=== PATIENT | female | born 1990 | race Caucasian/White ===

== ENCOUNTER → 2020-12-11 09:54 | Outpatient (CLI) | payer OTHER, SELFPAY ==
[2020-12-11 19:55] LABS: SARS-CoV-2 RNA PCR Negative
== END ==
PROVIDERS: PCP Internal Medicine; Visit Provider Nurse Practitioner
DX: Z20.822 Contact with and (suspected) exposure to COVID-19 (principal)
CPT/HCPCS: C9803; U0003; U0005

== ENCOUNTER → 2021-09-06 01:09 | Outpatient (CLI) | payer BC, SELFPAY ==
[2021-09-06 11:45] LABS: Influenza A QL RT-PCR Negative (Negative); Influenza B QL RT-PCR Negative (Negative); SARS-CoV-2 RNA PCR Positive
== END ==
PROVIDERS: PCP Internal Medicine; Visit Provider Nurse Practitioner
DX: U07.1 COVID-19 (principal); R50.9 Fever, unspecified
CPT/HCPCS: 87502; C9803; U0003; U0005

== ENCOUNTER 2022-06-16 09:35 | Outpatient (CLI) | payer BC, SELFPAY ==
[2022-06-16 11:44] LABS: Beta HCG Quantitative < 2.39 mIU/ML
== END 2022-06-16 09:36 | disposition home or self-care (01) ==
LOC: ANHLAB 09:37
PROVIDERS: PCP Internal Medicine; Visit Provider Student in an Organized Health Care Education/Training Program
DX: N91.2 Amenorrhea, unspecified (principal)
CPT/HCPCS: 36415; 84702

== ENCOUNTER 2023-07-26 11:08 | Emergency (ER) | payer BC, SELFPAY ==
[2023-07-26] VITALS (11 sets, daily range): BP systolic 127–147; BP diastolic 80–105; PULSE 71–82; RESP 14–19; TEMP 36.8; O2SAT 99–100
--- NOTE | 2023-07-26 11:11 | ED.HA ---
HPI - Headache General Chief Complaint: Headache Stated Complaint: migraine Time Seen by Provider: 07/26/23 11:11 Source: patient Mode of arrival: ambulatory Limitations: no limitations History of Present Illness HPI Narrative: Yasmin is a 33-year-old female patient presenting to the ER today with complaints of a headache that started yesterday. She reports she took 2 doses of Tylenol yesterday and that only minimally relieved the pain. Currently rates her pain as 7 at 10. States the pain is to the top of her head. Is throbbing when she is moving but at rest it is dull. She does not eyes any photosensitivity or phono sensitivity. She reports she has some associated nausea without vomiting. Never been diagnosed with migraine headache. States she is getting more frequently as she is . She is currently 13 weeks by IVF. G1-P0. Blood pressure is 147/96. Wears glasses/contacts- last eye exam was 1 year ago Related Data Home Medications Medication Instructions Recorded Confirmed clonazepam 0.5 mg tablet 0.5 mg PO DAILY PRN 11/30/19 03/25/23 Allergies Allergy/AdvReac Type Severity Reaction Status Date / Time No Known Allergies Allergy Verified 03/25/23 15:08 Review of Systems Review of Systems: Pertinent positives per HPI. Patient denies any fever, chills, rash, visual changes, dizziness, cough, runny nose, sore throat, shortness of breath, chest pain, palpitations, vomiting, diarrhea, constipation, abdominal pain, or any urinary issues. PMFSH Past Medical History Medical History Seasonal allergies Surgical History Surgical History History of salpingo-oophorectomy Family History Family History Mother Diabetes mellitus Grandparent Diabetes mellitus Social History Social History Smoking status: Never smoker Alcohol intake: current Substance use: never Lack of Transportation: No Lack of Food: Never True Current Housing: I Have Housing Concerned About Future Housing: No Difficulty Paying Gas/Electric Bills: No Difficulty Paying for Meds: No Currently Unemployed: Decline to Answer Education: Master's Degree or Higher Difficulty w/ Childcare or Family Care: No Living arrangements: with family Occupation/Education: occupation Gender identity (if verbalized by the patient): Female Sexual Orientation (if Verbalized by the Patient): Straight or Heterosexual Comments At the time of my signature, I reviewed and agree with the nursing past medical, surgical, social, and family history. There is no relevant family history pertinent to the patient complaint. Exam Narrative: General: Well-developed, well nourished, in no apparent distress Head: Normocephalic, atraumatic Eyes: Pupils equally round and reactive to light bilaterally, EOM intact, sclera and conjunctive clear, no discharge, lids normal, wears glasses Ears: TMs intact and clear, ear canals clear, no drainage, grossly hearing normal. Nose: Nares patent, no discharge, no inflammation, no sinus tenderness. Mouth: Oropharynx without lesions or masses, good dentition, MMM. Tongue midline, even rise and fall of uvula Neck: Supple, trachea midline, no enlargement of anterior or posterior cervical nodes, no thyroid masses or goiter palpable. Cardio: Regular rate and rhythm, s1 and s2 normal, no murmur appreciated. Resp: Clear to auscultation bilaterally anteriorly and posteriorly, no rhonchi, rales, wheezing or rubs Musculoskeletal: No deformity, non-tender to palpation, grossly normal range of motion, muscle strength strong and equal, peripheral pulse strong, no edema, no cyanosis, normal gait and station Neuro: Alert and oriented x4 with normal speech, no focal de
[2023-07-26] MEDS: SODIUM CHLORIDE 0.9% IV 1,000 ML 999 ML IV CONT (11:42)
[2023-07-26] MEDS: diphenhydrAMINE HCl INJ 50 MG/ML VIAL 25 MG IV PUSH (11:43)
[2023-07-26] MEDS: PROMETHAZINE HCL 25 MG/ML AMPUL 12.5 MG IV PUSH (11:43)
[2023-07-26] MEDS: ACETAMINOPHEN 500 MG TABLET 1000 MG PO (11:43)
[2023-07-26 12:20] LABS: Appearance Urine Clear (Clear); Bacteria Urine Rare /hpf; Bilirubin Urine Negative (Negative); Blood Urine Negative (Negative); Color Urine Yellow (Yellow); Glucose Urine UA Negative (Negative); Ketones Urine Negative (Negative); Leukocyte Esterase Ur 3+ LEU/UL (Negative); Need Manual Microscopic Reviewed; Nitrate Urine Negative (Negative); Non Pathogenic Casts 0-2; Protein Urine Negative (Negative); RBC Urine 0-2 /hpf (0-2); Specific Grav Ur 1.009 (1.001-1.035); Squamous Epithelial Cell Urine Few /hpf (Few); Urobilinogen Urine 0.2 mg/dL (<2.0); WBC Urine 0-5 /hpf (0-3); pH Urine 6.5 (5.0-9.0)
[2023-07-26 12:22] LABS: Add Urine Microscopic? YES
--- NOTE | 2023-07-26 13:02 | PC.NURSE ---
FHT's per Doppler 140's
== END 2023-07-26 13:59 | disposition home or self-care (01) ==
PROVIDERS: Emergency Provider Nurse Practitioner Family; PCP Internal Medicine
DX: O99.351 Diseases of the nervous system complicating pregnancy, first trimester (principal); G44.89 Other headache syndrome; O23.11 Infections of bladder in pregnancy, first trimester; N30.00 Acute cystitis without hematuria; Z90.79 Acquired absence of other genital organ(s); Z3A.13 13 weeks gestation of pregnancy
CPT/HCPCS: 81001; 96361; 96374; 96375; 99284; A9270; J1200; J2550; J7030

== ENCOUNTER 2023-12-30 11:38 | Outpatient (CLI) | payer BC, SELFPAY ==
[2023-12-30 11:59] LABS: Basophils Percent Auto 0.4 % (0.2-1.2); Eosinophils Absolute Auto 0.1 K/mm3 (0-0.3); Eosinophils Percent Auto 0.6 % (0-4.4); Hematocrit 32.6 % (37.0-47.0); Immature Granulocyte Absolute 0.15 K/mm3 (0.00-0.031); Immature Granulocyte Percent A 1.4 % (0-0.5); Lymphocytes Absolute Auto 1.85 K/mm3 (0.9-3.2); Lymphocytes Percent Auto 17.1 % (18.3-44.2); Mean Corpuscular HGB Conc 30.7 g/dl (32-36); Mean Corpuscular Hemoglobin 23.6 pg (26-34); Mean Corpuscular Volume 76.9 fl (80-100); Monocytes Absolute Auto 0.6 K/mm3 (0.1-0.6); Monocytes Percent Auto 5.6 % (2.6-8.5); Neutrophils Absolute Auto 8.1 K/mm3 (1.3-6.7); Neutrophils Percent Auto 74.9 % (45.5-73.1); Platelet Count Result 269 k/mm3 (150-375); Red Blood Count 4.24 M/mm3 (4.2-5.4); Red Cell Distribution Width 15.9 % (11.5-14.5); White Blood Count 10.8 K/mm3 (4.5-10.0)
[2023-12-30 12:00] VITALS: BP 133/94; PULSE 82
[2023-12-30 12:14] LABS: Alanine Aminotransferase 15 U/L (6-35); Albumin Level 3.9 g/dL (3.5-5.1); Alkaline Phosphatase 202 U/L (38-126); Anion Gap 5 mmol/L (4-12); Aspartate Amino Transferase 25 U/L (14-36); Bilirubin,Total 0.4 mg/dL (0.2-1.3); Blood Urea Nitrogen 6 mg/dL (7-17); Calcium 9.1 mg/dL (8.4-10.2); Carbon Dioxide 21 mmol/L (22-30); Chloride 101 mmol/L (98-107); Estimated Glomerular Filt Rate > 60; Glucose 97 mg/dL (65-110); Potassium 3.9 mmol/L (3.4-5.0); Sodium 127 mmol/L (137-145)
[2023-12-30 12:15] VITALS: BP 132/85; PULSE 82
[2023-12-30 12:30] VITALS: BP 123/84; PULSE 91
[2023-12-30 12:31] LABS: Color Urine Yellow (Yellow)
[2023-12-30 12:32] LABS: Appearance Urine Clear (Clear); Bilirubin Urine Negative (Negative); Blood Urine Trace-intact (Negative); Glucose Urine UA Negative (Negative); Ketones Urine Negative (Negative); Nitrate Urine Negative (Negative); Protein Urine Negative (Negative); Urobilinogen Urine 0.2 mg/dL (<2.0)
[2023-12-30 12:33] LABS: Add Urine Microscopic? YES; Leukocyte Esterase Ur 3+ LEU/UL (Negative)
[2023-12-30 12:39] LABS: Squamous Epithelial Cell Urine Moderate /hpf (Few)
[2023-12-30 12:40] LABS: Bacteria Urine 3+ /hpf
[2023-12-30 12:45] VITALS: BP 131/89; PULSE 88
[2023-12-30 12:55] VITALS: BP 133/94; PULSE 85
[2023-12-30 12:58] LABS: Creatinine Urine 40.6 mg/dL; Total Protein Urine Random 14 mg/dL; Ur Ttl Prot Creatinine Ratio 0.34 mg/mg (0-0.20)
--- NOTE | 2023-12-30 13:02 | PC.NURSE ---
Dr. Ashkan Andre notified of NST, vital signs, and lab results. Blood pressure follow up in office next week.
== END 2023-12-30 13:05 | disposition home or self-care (01) ==
LOC: ANHOBOP 11:42 → ANHLDR 11:43
PROVIDERS: PCP Internal Medicine; Visit Provider Obstetrics & Gynecology
DX: O13.9 Gestational [pregnancy-induced] hypertension without significant proteinuria, unspecified trimester (principal); Z3A.00 Weeks of gestation of pregnancy not specified
CPT/HCPCS: 36415; 59025; 80053; 81001; 82570; 84156; 84550; 85025; 87077; 87086; 87088; 87186; 99199

== ENCOUNTER 2024-01-15 14:04 | Observation (INO) | payer BC, SELFPAY ==
--- NOTE | 2024-01-15 14:04 | OBADM ---
This patient, Yasmin Felix, admitted to the OB room Labor/Delivery/Recovery 106 for observation. Patient/family oriented to hospital policies and general routines including ID bracelet, bed and alarms, visiting hours, pain management, procedures, bathroom and other care routines, personal items, smoking policy, room service/diet, and visiting hours. Patient/Family are encouraged to report perceived risks to care and to ask questions if they do not understand what they are told or what they should do.
[2024-01-15 15:19] VITALS: BMI 40.8
[2024-01-15 15:35] LABS: Add Urine Microscopic? YES; Appearance Urine Clear (Clear); Bacteria Urine Rare /hpf; Bilirubin Urine Negative (Negative); Blood Urine Negative (Negative); Color Urine Yellow (Yellow); Glucose Urine UA Negative (Negative); Ketones Urine Negative (Negative); Leukocyte Esterase Ur 3+ LEU/UL (Negative); Need Manual Microscopic Reviewed; Nitrate Urine Negative (Negative); Non Pathogenic Casts 0-2; Protein Urine Negative (Negative); RBC Urine 0-2 /hpf (0-2); Specific Grav Ur 1.013 (1.001-1.035); Squamous Epithelial Cell Urine Occasional /hpf (Few); Urobilinogen Urine 0.2 mg/dL (<2.0); WBC Urine 0-5 /hpf (0-3); pH Urine 6.5 (5.0-9.0)
--- NOTE | 2024-01-15 15:45 | PC.NURSE ---
Dr. Mariee on the unit. reviewed urine results. tracing reviewed with provider. Discharge order received.
--- NOTE | 2024-01-20 08:26 | P.PNOB_ITS ---
OB - Triage/Final Diagnosis Visit Information Comments/Additional reasons for admission: I have assessed the risk for this patient, Yasmin Felix, and determined that she would benefit from observation care. Evaluation Laboratory results: Laboratory Tests 01/15/24 15:10 Urine Color Yellow Urine Appearance Clear Urine pH 6.5 Ur Specific [place] 1.013 Urine Protein Negative Urine Glucose (UA) Negative Urine Ketones Negative Ur Blood (Man) Negative Urine Nitrate Negative Urine Bilirubin Negative Urine Urobilinogen 0.2 Ur Leukocyte Esterase 3+ H Add Ur Microanalysis Reviewed Urine RBC 0-2 Urine WBC 0-5 Ur Squamous Epith Cells Occasional Urine Bacteria Rare Urine Casts 0-2 Final Diagnosis (1) Pelvic pressure in : Code(s): O26.899 - Other specified related conditions, unspecified trimester; R10.2 - Pelvic and perineal pain Status: Acute
== END 2024-01-15 16:03 | disposition home or self-care (01) ==
PROVIDERS: Admitting Provider Obstetrics & Gynecology; PCP Internal Medicine; Visit Provider Obstetrics & Gynecology
DX: O26.893 Other specified pregnancy related conditions, third trimester (principal); R10.2 Pelvic and perineal pain; Z3A.37 37 weeks gestation of pregnancy
CPT/HCPCS: 81001; G0378; G0379

== ENCOUNTER 2024-01-22 13:26 | Outpatient (RCR) | payer BC, SELFPAY ==
[2024-01-22 14:13] VITALS: BP 133/82; PULSE 86
== END 2024-04-21 23:59 | disposition home or self-care (01) ==
LOC: ANHOBOP 13:26
PROVIDERS: PCP Internal Medicine; Visit Provider Obstetrics & Gynecology
DX: O09.813 Supervision of pregnancy resulting from assisted reproductive technology, third trimester (principal); Z3A.38 38 weeks gestation of pregnancy
CPT/HCPCS: 59025

== ENCOUNTER 2024-01-24 09:56 | Inpatient (IN) | payer BC, SELFPAY ==
[2024-01-24] VITALS (74 sets, daily range): BP systolic 108–189; BP diastolic 61–119; PULSE 62–114; TEMP 36.4–37.1; O2SAT 91–100; BMI 41.2
--- NOTE | 2024-01-24 09:56 | LDADM ---
This patient, Yasmin Felix, was admitted to Labor/Delivery/Recovery 104 on 01/24/24 at 09:56. Plans for labor, pain management and were discussed with patient. Patient/family oriented to hospital policies and general routines including ID bracelet, bed and alarms, visiting hours, pain management, procedures, bathroom and other care routines, personal items, smoking policy, room service/diet and guest tray routines, infant security routines, and visiting hours. Patient/Family are encouraged to report perceived risks to care and to ask questions if they do not understand what they are told or what they should do. See OBIX for further documentation.
[2024-01-24 13:48] LABS: Basophils Absolute Auto 0.1 K/mm3 (0.0-0.1); Basophils Percent Auto 0.5 % (0.2-1.2); Eosinophils Absolute Auto 0.1 K/mm3 (0-0.3); Eosinophils Percent Auto 1.1 % (0-4.4); Hematocrit 32.1 % (37.0-47.0); Hemoglobin 9.9 g/dL (12.0-15.0); Lymphocytes Absolute Auto 2.23 K/mm3 (0.9-3.2); Lymphocytes Percent Auto 23.1 % (18.3-44.2); Mean Corpuscular HGB Conc 30.8 g/dl (32-36); Mean Corpuscular Volume 74.5 fl (80-100); Mean Platelet Volume 10.6 fl (7.4-10.4); Monocytes Absolute Auto 0.5 K/mm3 (0.1-0.6); Neutrophils Absolute Auto 6.7 K/mm3 (1.3-6.7); Neutrophils Percent Auto 69.3 % (45.5-73.1); Nucleated Red Blood Cells Perc 0.2 % (0.0-0.2); Platelet Count Result 257 k/mm3 (150-375); Red Blood Count 4.31 M/mm3 (4.2-5.4); Red Cell Distribution Width 17.3 % (11.5-14.5); White Blood Count 9.6 K/mm3 (4.5-10.0)
[2024-01-24 14:01] LABS: Alanine Aminotransferase 12 U/L (6-35); Albumin Level 3.6 g/dL (3.5-5.1); Alkaline Phosphatase 216 U/L (38-126); Anion Gap 10 mmol/L (4-12); Aspartate Amino Transferase 22 U/L (14-36); Bilirubin,Total 0.2 mg/dL (0.2-1.3); Blood Urea Nitrogen 9 mg/dL (7-17); Calcium 9.2 mg/dL (8.4-10.2); Carbon Dioxide 18 mmol/L (22-30); Chloride 106 mmol/L (98-107); Estimated Glomerular Filt Rate > 60; Glucose 99 mg/dL (65-110); Potassium 3.8 mmol/L (3.4-5.0); Sodium 134 mmol/L (137-145); Uric Acid 5.8 mg/dL (2.5-7.5)
[2024-01-24 14:35] LABS: Rapid Plasma Reagin Non-Reactive (NonReactive)
[2024-01-24 14:40] LABS: HIV 1/2 Ab P24 Ag Result Negative (Negative)
[2024-01-24 14:41] LABS: Platelet Estimate Adequate (Adequate); Schistocytes None Seen
[2024-01-24 14:42] LABS: Anisocytosis 2+; Hypochromasia 1+
[2024-01-24 14:43] LABS: Large Platelets Present; Microcytosis 1+ (NORMAL)
--- NOTE | 2024-01-24 15:24 | PM.IMHP ---
H&P: HPI History of Present Illness Date/Time: 01/24/24 15:24 Chief Complaint: Headache and elevated blood pressure at term 33-year-old 1 para 0 last menstrual period of May 06, EDC of 01/29/2024, confirmed by 10 week ultrasound presents with elevated had the blood pressure and headache at term. Her blood pressures have been elevated the last several visits. She is negative for group B strep. She had transfer of embryo in May 14, 2023 Narrative: see above [facility] Past Medical History Medical History Seasonal allergies Surgical History Surgical History History of salpingo-oophorectomy Family History Family History Mother Diabetes mellitus Grandparent Diabetes mellitus Social History Social History Smoking status: Never smoker Alcohol intake: current Substance use: never Lack of Transportation: No Lack of Food: Never True Current Housing: I Have Housing Concerned About Future Housing: No Difficulty Paying Gas/Electric Bills: No Difficulty Paying for Meds: No Currently Unemployed: Decline to Answer Education: Master's Degree or Higher Difficulty w/ Childcare or Family Care: No Living arrangements: with family Occupation/Education: occupation Gender identity (if verbalized by the patient): Female Sexual Orientation (if Verbalized by the Patient): Straight or Heterosexual Spiritual care concerns: No Meds Home Medications and Allergies Home Medications Medication Instructions Recorded Confirmed Type PIA-fvdn-RO-omega 3-fat com #1 27 1 cap PO DAILY 09/22/23 01/22/24 History mg-1 mg-300 mg capsule aspirin 325 mg capsule 325 mg PO DAILY 09/22/23 01/22/24 History Allergies Allergy/AdvReac Type Severity Reaction Status Date / Time No Known Allergies Allergy Verified 01/02/24 12:42 Vital Signs Vital Signs - 24 hr 01/24/24 12:01 01/24/24 12:16 01/24/24 13:37 Temperature Pulse Rate 73 78 76 Blood Pressure 139/86 112/71 108/86 01/24/24 15:07 01/24/24 15:19 01/24/24 15:23 Temperature 98.1 F Pulse Rate 88 Blood Pressure 152/119 H 137/109 H Exam Const: General: cooperative, healthy appearing and comfortable Nutritional Appearance: average body habitus Orientation/consciousness: oriented to person, oriented to place and oriented to time Resp: Effort & Inspection: normal respiratory effort Cardio: Rate: regular rate Rhythm: regular rhythm Heart sounds: S1 normal heart sound present and S2 normal heart sound present GI: Inspection: normal to inspection ( gravid soft uterus) : External Female Exam: normal external appearance Speculum Exam - Vagina: normal appearance of the vagina Speculum Exam - Cervix: normal appearance of the cervix ( cervix 3/50/2. AROM clear. FHTs reassuring) H&P: Results Labs Labs: Short CBC 01/24/24 Range/Units 13:17 WBC 9.6 (4.5-10.0) K/mm3 Hgb 9.9 L (12.0-15.0) g/dL Hct 32.1 L (37.0-47.0) % Plt Count 257 (150-375) k/mm3 BMP 01/24/24 13:17 Sodium 134 L Potassium 3.8 Chloride 106 Carbon Dioxide 18 L BUN 9 Creatinine 0.50 L Glucose 99 Calcium 9.2 Liver Function 01/24/24 Range/Units 13:17 Total Bilirubin 0.2 (0.2-1.3) mg/dL AST 22 (14-36) U/L ALT 12 (6-35) U/L Alkaline Phosphatase 216 H (38-126) U/L Albumin 3.6 (3.5-5.1) g/dL Assessment and Plan Assessment and plan (1) Gestational hypertension: Code(s): O13.9 - Gestational [-induced] hypertension without significant proteinuria, unspecified trimester Status: Acute Assessment and Plan: medical induction of labor. PIH labs are normal. She is an epidural candidate.
[2024-01-24] MEDS: LACTATED RINGERS 1,000 ML 125 ML IV CONT ×2 (16:10→20:17)
[2024-01-24] MEDS: OXYTOCIN 30 UNITS/NS 500 ML 30 UNITS/500 ML BAG IV CONT (16:11)
--- NOTE | 2024-01-24 16:59 | WPDANESEPP ---
Anes - Eval Pre Procedure Procedure: Labor epidural Date/Time: 01/24/24 16:59 Surgeon: Ashkan Chapman Preop Diagnosis: Abdominal pain with contractions Pre Op Diagnosis: IOL/elevated BP/headache Patient Data Age: 33 Gender: F Height: 1.55 m Weight: 99 kg Last Vital Signs Temp 98.1 F 01/24/24 15:07 Pulse 71 01/24/24 16:46 BP 146/98 H 01/24/24 16:46 O2 Del Method Room Air 01/24/24 16:20 Allergies Allergy/AdvReac Type Severity Reaction Status Date / Time No Known Allergies Allergy Verified 01/02/24 12:42 Home Medications Medication Instructions Recorded Confirmed Type ILP-zkjt-WL-omega 3-fat com #1 27 1 cap PO DAILY 09/22/23 01/24/24 History mg-1 mg-300 mg capsule aspirin 325 mg capsule 325 mg PO DAILY 09/22/23 01/24/24 History Laboratory Tests 01/24/24 13:17 WBC 9.6 K/mm3 (4.5-10.0) RBC 4.31 M/mm3 (4.2-5.4) Hgb 9.9 L g/dL (12.0-15.0) Hct 32.1 L % (37.0-47.0) MCV 74.5 L fl (80-100) MCH 23.0 L pg (26-34) MCHC 30.8 L g/dl (32-36) RDW 17.3 H % (11.5-14.5) Plt Count 257 k/mm3 (150-375) MPV 10.6 H fl (7.4-10.4) Immature Gran % (Auto) 1.0 H % (0-0.5) Neut % (Auto) 69.3 % (45.5-73.1) Lymph % (Auto) 23.1 % (18.3-44.2) [place] % (Auto) 5.0 % (2.6-8.5) Eos % (Auto) 1.1 % (0-4.4) Baso % (Auto) 0.5 % (0.2-1.2) Lymph # (Auto) 2.23 K/mm3 (0.9-3.2) [place] # (Auto) 0.5 K/mm3 (0.1-0.6) Eos # (Auto) 0.1 K/mm3 (0-0.3) Baso # (Auto) 0.1 K/mm3 (0.0-0.1) Abs Immat Gran (auto) 0.10 H K/mm3 (0.00-0.031) Absolute Neuts (auto) 6.7 K/mm3 (1.3-6.7) Absolute Nucleated RBC 0.020 H K/mm3 (0.0-0.012) Nucleated RBC % 0.2 % (0.0-0.2) Platelet Estimate Adequate (Adequate) Large Platelets Present Hypochromasia 1+ Anisocytosis 2+ Microcytosis 1+ (NORMAL) Schistocytes None seen Sodium 134 L mmol/L (137-145) Potassium 3.8 mmol/L (3.4-5.0) Chloride 106 mmol/L (98-107) Carbon Dioxide 18 L mmol/L (22-30) Anion Gap 10 mmol/L (4-12) BUN 9 mg/dL (7-17) Creatinine 0.50 L mg/dL (0.7-1.0) Estim Creat Clear Calc Not Reportable Estimated GFR > 60 (59 - ) Glucose 99 mg/dL (65-110) Uric Acid 5.8 mg/dL (2.5-7.5) Calcium 9.2 mg/dL (8.4-10.2) Total Bilirubin 0.2 mg/dL (0.2-1.3) AST 22 U/L (14-36) ALT 12 U/L (6-35) Alkaline Phosphatase 216 H U/L (38-126) Total Protein 7.0 g/dL (6.3-8.2) Albumin 3.6 g/dL (3.5-5.1) RPR Non-reactive (NonReactive) HIV 1&2 Ab/P24 Ag 4thGn Negative (Negative) Blood Type B Positive Antibody Screen Negative : gestational age HCG: positive Patient hx anesthesia problems: none Family hx anesthesia problems: none Results Review: All pre-operative results and documents have been reviewed as part of the pre-operative evaluation. [facility] Past Medical History Medical History Acute bronchitis Anxiety Depression Gestational hypertension Infertility, female Morbid obesity Seasonal allergies Surgical History Surgical History History of salpingo-oophorectomy Family History Family History Mother Diabetes mellitus Grandparent Diabetes mellitus Social History Social History Smoking status: Never smoker Second hand tobacco smoke exposure: No Alcohol intake: current Substance use: never Do You Feel Safe in your Home?: Yes Lack of Transportation: No Lack of Food: Never True Current Housing: I Have Housing Concerned About Future Housing: No Difficulty Paying Gas/Electric Bills: No Difficulty Paying for Meds: No Currently U
[2024-01-24] MEDS: fentaNYL CITRATE INJ (*CRX) 100 MCG/2 ML VIAL 50 MCG IV PUSH (17:56)
[2024-01-25] VITALS (88 sets, daily range): BP systolic 114–159; BP diastolic 63–107; PULSE 70–278; RESP 18; TEMP 36.4–38.2; O2SAT 95–100
[2024-01-25] MEDS: ACETAMINOPHEN 500 MG TABLET 1000 MG PO (03:03)
[2024-01-25] MEDS: SODIUM CHLORIDE 0.9% IV 1,000 ML 100 ML I-UTERINE (04:26)
--- NOTE | 2024-01-25 05:32 | PM.OBPNLAB ---
Pain Control Date/time seen: 01/25/24 05:32 Pain control: tolerating well and epidural Pelvic Exam Dilation (cm): 8 Amniotic membrane status: Leaking Comments: amnioinfusion going Contractions Monitor mode: Internal
[2024-01-25] MEDS: ceFAZolin 2 GM/D5W 50 ML 2 GM/50 ML BAG IVPB (06:23)
[2024-01-25] MEDS: LACTATED RINGERS 1,000 ML 125 ML IV CONT (06:23)
[2024-01-25] MEDS: diphenhydrAMINE HCl INJ 50 MG/ML VIAL 25 MG IV PUSH (07:14)
[2024-01-25] MEDS: AMPICILLIN 2 GM/NS 100 ML 2 GM/100 ML BAG IVPB (09:06)
--- NOTE | 2024-01-25 13:32 | PM.OBPRVD ---
OB - Vaginal Delivery Note Procedure Delivery date: 01/25/24 Events: Gestational Hypertension Induction method: AROM Delivery augmentation: Pitocin Delivery monitor: External FHT, External Uterine, Internal FHT and Internal Uterine Route of delivery: Episiotomy description: Midline Laceration Description: None Delivery repair: vicryl Specimen: No Quantitative Blood Loss (ml): 161 Anesthesia type: Epidural Disposition: Floor Complications: No immediate complications Narrative: Patient was admitted for induction of labor on 01/24/2024. She had elevated blood pressures PIH labs were normal she progressive a very slow 1st stage of labor to completely dilated and had an elevated temperature but received a dose of Ancef which she was complete she pushed delivered the head spontaneously after midline episiotomy was made in the KENAN position. Anterior posterior shoulder delivered spontaneously. Cord clamped x2 and cut and passed off table given Apgars of 8 [id number] 9 [id number]. Cord blood was drawn. Placenta delivered excellent and the Pitocin 20units was placed in the IV to help firm the uterus. The midline episiotomy was noted not to extend and was closed with layered 3-0 Vicryl. QBL was 161cc. Mom and baby doing fine at the time medication Baby Date of : 01/25/24 Time of : 13:21 Gestational Age by Date: 38 gender: Female presentation: vertex position: Right Occiput Anterior Placenta delivery description: Spontaneous Cord Vessel Description: 3 Vessels score one minute: 8 score five minutes: 9
--- NOTE | 2024-01-25 13:34 | PM.DS ---
DS: Admitting Diagnosis Discharge Date 01/27/2024 Admitting Diagnosis gestational hypertension/ term pregnanc DS: Discharge Diagnosis Discharge Diagnosis (1) Gestational hypertension: Code(s): O13.9 - Gestational [-induced] hypertension without significant proteinuria, unspecified trimester Status: Acute (2) Term : Code(s): Z34.90 - Encounter for supervision of normal , unspecified, unspecified trimester Status: Acute DS: Summary Hospital Course Reason for hospitalization: patient was admitted on 01/24/2024 for induction of labor secondary to elevated blood pressures. She underwent spontaneous vaginal delivery at 1:21 p.m. on 01/25/2024. Hospital Course: Patient's hospital course unremarkable. She remained afebrile. She was up, voiding without difficulty, eating regular diet, ambulating, breast-feeding, and generally without complaints. Time Spent with Patient Time attestation: Total time spent providing and/or coordinating discharge services: Exam Const: General: cooperative, healthy appearing and comfortable Nutritional Appearance: average body habitus Orientation/consciousness: oriented to person, oriented to place and oriented to time HENMT: Head: normal to inspection Resp: Effort & Inspection: normal respiratory effort Cardio: Rate: regular rate Rhythm: regular rhythm Heart sounds: S1 normal heart sound present and S2 normal heart sound present GI: Inspection: normal to inspection DS: Data Data Completed and Pending Labs on day of discharge: Labs from last 24 hours 01/24/24 13:17 WBC 9.6 RBC 4.31 Hgb 9.9 L Hct 32.1 L MCV 74.5 L MCH 23.0 L MCHC 30.8 L RDW 17.3 H Plt Count 257 MPV 10.6 H Immature Gran % (Auto) 1.0 H Neut % (Auto) 69.3 Lymph % (Auto) 23.1 [place] % (Auto) 5.0 Eos % (Auto) 1.1 Baso % (Auto) 0.5 Lymph # (Auto) 2.23 [place] # (Auto) 0.5 Eos # (Auto) 0.1 Baso # (Auto) 0.1 Abs Immat Gran (auto) 0.10 H Absolute Neuts (auto) 6.7 Absolute Nucleated RBC 0.020 H Nucleated RBC % 0.2 Platelet Estimate Adequate Large Platelets Present Hypochromasia 1+ Anisocytosis 2+ Microcytosis 1+ Schistocytes None seen Sodium 134 L Potassium 3.8 Chloride 106 Carbon Dioxide 18 L Anion Gap 10 BUN 9 Creatinine 0.50 L Estim Creat Clear Calc Not Reportable Estimated GFR > 60 Glucose 99 Uric Acid 5.8 Calcium 9.2 Total Bilirubin 0.2 AST 22 ALT 12 Alkaline Phosphatase 216 H Total Protein 7.0 Albumin 3.6 RPR Non-reactive HIV 1&2 Ab/P24 Ag 4thGn Negative Blood Type B Positive Antibody Screen Negative Discharge Plan Discharge Attending physician on discharge: Miguelangel Anthony Discharging Clinician: Miguelangel Anthony Patient Disposition: Home, Self-Care Activity: may shower, no straining and pelvic rest Diet: heart healthy Patient Instructions: Antibiotic Form Stand Alone Forms: General Discharge Information Follow-up/Referrals: Miguelangel Anthony MD [Physician] - Discharge Medications: Continued KEP-yjqt-OZ-omega 3-fat com #1 27-1-300 mg capsule 1 cap PO DAILY aspirin 325 mg capsule 325 mg PO DAILY Date of admission: 01/24/24 09:56 Primary Care Provider: Edil Elkins Admitting Provider: Miguelangel Anthony Attending physician on admission: Miguelangel Anthony Condition: Stable
[2024-01-25] MEDS: OXYTOCIN 30 UNITS/NS 500 ML 30 UNITS/500 ML BAG 125 UNITS IV CONT (13:46)
[2024-01-25] MEDS: BENZOCAINE 20% AER SPR (*SP) 56 GM CAN 1 SPRAY TOPICAL (15:31)
[2024-01-25] MEDS: WITCH HAZEL 40 PADS 1 PAD TOPICAL (15:31)
--- NOTE | 2024-01-25 16:58 | OBPPTRN ---
1604 Patient transferred to post room #282 via W/C. Support person present. Oriented to unit, room, information board, rooming in, admission packet and security measures. Patient verbalizes understanding.
--- NOTE | 2024-01-25 18:06 | PC.NURSE ---
Addendum entered by Yanni Ramos RN 01/25/24 18:09: 10-20 minutes. Mom very concerned that baby is too cold when she isn't covered with a blanket. We reviewed that skin to skin is best for staying awake to feed and that being too warm and cozy makes babies sleepy and harder to feed. Mom agrees to this plan. Reported to primary RN. 01/25/24 @ [id number] Original Note: Attempted to latch baby since it has been 3 hours since last feeding. Mom awkward with positioning, so we worked on cross cradle and mom wasn't able to maintain positioning. Baby was fussing, not rooting or giving any effort to latch. We tried to put the nipple in baby's mouth when she opens to cry but she wouldn't latch or suck. Mom is very anxious and unsure how to begin a feeding with baby. Mom cries when baby cries. Dad is calm and supportive. Encouraged mom to place baby on her chest skin to skin to calm mom and baby and then attempt feeding again in 01-22
[2024-01-25] MEDS: ACETAMINOPHEN 325 MG TABLET 650 MG PO (19:56)
[2024-01-26] MEDS: IBUPROFEN 600 MG TABLET PO ×3 (01:13→15:29)
[2024-01-26 03:34] VITALS: BP 126/74; PULSE 74; RESP 18; TEMP 36.1; O2SAT 99
[2024-01-26 05:45] LABS: Hematocrit 26.3 % (37.0-47.0); Hemoglobin 8.1 g/dL (12.0-15.0)
--- NOTE | 2024-01-26 06:29 | PM.OBPNVD ---
OB - PN: Subj Subjective Date/time seen: 01/26/24 06:29 Patient comments: no complaints and pain well controlled baby status: doing well and nursing well OB - PN: Obj Data Labs 01/26/24 03:47 01/24/24 13:17 Labs: Laboratory Results - last 24 hr 01/26/24 03:47 Hgb 8.1 L Hct 26.3 L OB - PN A/P Plan day: 1 Plan: routine care Time Spent With Patient Time: Total time spent is greater than 50% in coordination of care (as documented) at patient's floor/unit and/or counseling patient: Time with patient: less than 15 minutes Exam Const: General: cooperative, healthy appearing, comfortable and overweight Orientation/consciousness: oriented to person, oriented to place and oriented to time Resp: Effort & Inspection: normal respiratory effort Cardio: Rate: regular rate Rhythm: regular rhythm Heart sounds: S1 normal heart sound present and S2 normal heart sound present GI: Inspection: normal to inspection
[2024-01-26 07:25] VITALS: BP 128/84; PULSE 70; RESP 16; TEMP 36.6; O2SAT 100
[2024-01-26] MEDS: DOCUSATE SODIUM 100 MG CAPSULE PO ×2 (09:03→15:30)
[2024-01-26] MEDS: MULTIVIT/MIN/PREN/FOL AC/IRON TABLET 1 TAB PO (09:03)
[2024-01-26] MEDS: POLYSACCHARIDE IRON COMPLEX 150 MG CAPSULE PO ×2 (09:04→15:28)
[2024-01-26 12:24] VITALS: BP 123/84; PULSE 70; RESP 16; TEMP 36.6; O2SAT 98
[2024-01-26 17:38] VITALS: BP 129/81; PULSE 72; RESP 18; TEMP 36.4; O2SAT 98
--- NOTE | 2024-01-26 18:17 | PC.NURSE ---
1535. Introductions were made, then consulted with patient to assess needs related to . Reviewed moms history with her, and she reports this baby was an IVF baby. Mom reports she starting using a nipple shield to get to latch overnight last night. We reviewed the possibility of low milk supply. We reviewed building and maintaining a supply, milk production, duration of feeding, signs of adequate intake/output and how to record on the feeding sheet, benefits of skin to skin, stimulating with massage touch, changing positions to encourage wakefulness, how to watch for early feeding cues, responsive feeding, feeding on demand (aiming for 8-12 times in 24 hours, about every 2-3 hours). Mom appears anxious with information, but verbalized that she appreciates the information. Reviewed positioning and ear, shoulder, hip alignment, supporting the breast to facilitate a deep latch, asymmetrical latch (off-center), leading with the chin with a big, open, wide gape and body close to mother. Infant did not latch after multiple attempts made. It was 2 hours since the start of her last feed. Mom encouraged to do s2s and watch for infants next early feeding cue and reattempt to latch in the correct positioning and alignment. Mother voiced understanding of skin to skin, stimulating with massage touch, responsive feedings, hand expressed colostrum, talking to to encourage if it has been 2 -2.5 hours since the start of the last , to call if does not latch, or if there is discomfort with . Resources used for education were facilitated with the visual educational handouts, tool, &mom and baby guide. Moms nipples measured with tool for correct nipple shield flange size. Mom measured at size 23mm = size 27 nipple shield. Parents voiced understanding of information, demonstrated learning and will call if there is a request for assistance. Reported to the Primary RN.
[2024-01-26 19:50] VITALS: BP 144/94; PULSE 73; RESP 18; TEMP 36.5; O2SAT 98
[2024-01-26] MEDS: ACETAMINOPHEN 325 MG TABLET 650 MG PO (21:53)
[2024-01-26] MEDS: SIMETHICONE 80 MG TAB.CHEW PO (22:17)
[2024-01-26 23:53] VITALS: BP 129/86
[2024-01-27 05:09] VITALS: BP 139/81
--- NOTE | 2024-01-27 06:28 | PM.OBPNVD ---
OB - PN: Subj Subjective Date/time seen: 01/27/24 06:28 Patient comments: no complaints and pain well controlled baby status: doing well OB - PN: Obj Data Labs 01/26/24 03:47 01/24/24 13:17 OB - PN A/P Plan day: 2 Plan: routine care, discharge home and follow up 6 weeks Time Spent With Patient Time: Total time spent is greater than 50% in coordination of care (as documented) at patient's floor/unit and/or counseling patient: Time with patient: less than 15 minutes Exam Const: General: cooperative, healthy appearing and comfortable Nutritional Appearance: average body habitus Orientation/consciousness: oriented to person, oriented to place and oriented to time Resp: Effort & Inspection: normal respiratory effort Cardio: Rate: regular rate Rhythm: regular rhythm Heart sounds: S1 normal heart sound present and S2 normal heart sound present GI: Inspection: normal to inspection
[2024-01-27] MEDS: MULTIVIT/MIN/PREN/FOL AC/IRON TABLET 1 TAB PO (07:16)
[2024-01-27] MEDS: POLYSACCHARIDE IRON COMPLEX 150 MG CAPSULE PO ×2 (07:16→07:18)
[2024-01-27] MEDS: IBUPROFEN 600 MG TABLET PO (07:16)
[2024-01-27] MEDS: DOCUSATE SODIUM 100 MG CAPSULE PO (07:16)
[2024-01-27 07:35] VITALS: BP 132/81; PULSE 71; RESP 18; TEMP 36.4; O2SAT 99
--- NOTE | 2024-01-27 07:50 | PC.NURSE ---
Mother verbalizes she is able to independently latch with appropriate positioning and alignment. She denies any nipple discomfort and is responsively . Infant is currently meeting outcomes for weight, output, jaundice, blood sugar and feeding frequencies of 8-12 times in 24 hours. Mother declines any additional assistance or education at this time. Mother is encouraged to call for assistance if her infant doesn?t latch, pain with latching, questions or concerns. Mother voiced understanding of information shared along with the mom/baby guide for an additional resource. Reviewed good handwashing, cleaning the nipple shield and the appropriate way to apply and use as a tool. Discussed with mom the nipple shield precautions, possible complications associated with the risks and benefits. Reviewed practicing with a nipple shield, then without and how to protect the milk supply and production. Mom and baby guide referred to as a resource for outpatient services, community resources and when to call a provider. Mom voiced understanding of the importance of hand expression, nipple stimulation and initiating a pumping schedule if infant continues to nurse with the shield.
[2024-01-27] MEDS: ACETAMINOPHEN 325 MG TABLET 650 MG PO (10:45)
[2024-01-27 12:16] VITALS: BP 131/86; PULSE 75; RESP 18; TEMP 37.2; O2SAT 98
[2024-01-28 11:25] VITALS: BP 144/89; PULSE 76; RESP 18; TEMP 36.8; O2SAT 98
== END 2024-01-27 16:30 | disposition home or self-care (01) | DRG 806 ==
LOC: ANHLDR 01-25 13:37 → ANHOB2 01-25 16:07
PROVIDERS: Admitting Provider Obstetrics & Gynecology; PCP Internal Medicine; Visit Provider Obstetrics & Gynecology
DX: O13.4 Gestational [pregnancy-induced] hypertension without significant proteinuria, complicating childbirth (principal); O75.2 Pyrexia during labor, not elsewhere classified; Z37.0 Single live birth; Z3A.39 39 weeks gestation of pregnancy; O70.1 Second degree perineal laceration during delivery; O42.02 Full-term premature rupture of membranes, onset of labor within 24 hours of rupture
CPT/HCPCS: 36415; 80053; 84550; 85014; 85018; 85025; 86592; 86703; 86850; 86900; 86901; A9270; G0432; J0290; J0690; J1200; J2590; J2795; J3010; J7030; J7120